=== PATIENT | female | born 1955 | race Caucasian/White ===

== ENCOUNTER 2022-05-23 12:05 | Day surgery (SDC) | payer OTHER ==
[~2022-05-23] VITALS: Ht 162.6 cm; Wt 72.7 kg
[2022-05-23] MEDS ORDERED: OMEP20ER (12:56)
[2022-05-23] MEDS ORDERED: GABA300 (12:56)
[2022-05-23] MEDS ORDERED: Masophen325 MG (12:57)
[2022-05-23] MEDS ORDERED: MAGCIT300 (12:57)
== END 2022-05-23 14:33 | disposition home or self-care (01) ==
LOC: ORSCSDS 12:05
PROVIDERS: Surgery
PROC: 0DBN8ZX Excision of Sigmoid Colon, Via Natural or Artificial Opening Endoscopic, Diagnostic (ICD-10-PCS; principal; 2022-05-23 13:30)
DX: Z12.11 Encounter for screening for malignant neoplasm of colon (principal); K63.5 Polyp of colon; K57.30 Diverticulosis of large intestine without perforation or abscess without bleeding; Z87.891 Personal history of nicotine dependence
CPT/HCPCS: 88305; J2704; J7120

== ENCOUNTER 2022-06-01 10:59 | Inpatient (IN) | payer OTHER ==
[~2022-06-01] VITALS: Ht 165.1 cm; Wt 73.6 kg
[~2022-06-01 10:59] MED LIST: GABA300 PO; MAGCIT300; Masophen325 MG PO; OMEP20ER PO
--- NOTE | 2022-06-01 13:48 | NUR ---
THE PATIENT WAS BROUGHT TO DAY SURGERY FROM THE ER FOR HER PROCEDURE.
--- NOTE | 2022-06-01 17:07 | NUR ---
PATIENT CAME BACK FROM PACU TODAY 06/01/22 AT 1625. POD 0 LEFT ANKLE ORIF PATIENT IS A&OX4. HER BP IS HIGH BUT OTHERWISE HAS WNL VS. PATIENT IS ON RA AND HAS >90% OXYGEN SATS. PATIENT REPORTS 5/10 PAIN AND WAS GIVEN WHAT IS ORDERED IN THE EMAR. LEFT ANKLE HAS EXTERNAL RODS AND A CAST THAT IS C/D/I. PATIENT IS TO BE NON WEIGHT BEARING ON THE LEFT ANKLE. SHE DENIES NUMBNESS AND TINGLING. CAN MOVE FINGERS AND TOES WHEN ASKED. PATIENT IS TOLERATING SMALL AMOUNTS OF PO INTAKE. SHE IS LAYING IN BED WITH CALL LIGHT IN REACH.
[2022-06-01 17:22] LABS: BASOPHILS ABSOLUTE AUTO 0.05 K/mm3 (0.00-0.23); BASOPHILS PERCENT AUTO 0 % (0-2); EOSINOPHILS ABSOLUTE AUTO 0.03 K/mm3 (0.00-0.68); EOSINOPHILS PERCENT AUTO 0 % (0-6); Hematocrit 35.6 % (33.0-51.0); Hemoglobin 11.1 g/dL (11.5-16.0); IMMATURE GRAN ABSOLUTE AUTO 0.05 K/mm3 (0.00-0.10); IMMATURE GRAN PERCENT AUTO 0 % (0-1); LYMPHOCYTES ABSOLUTE AUTO 0.78 K/mm3 (0.84-5.20); LYMPHOCYTES PERCENT AUTO 6 % (21-46); MONOCYTES ABSOLUTE AUTO 0.17 K/mm3 (0.16-1.47); MONOCYTES PERCENT AUTO 1 % (4-13); Mean Corpuscular HGB 26.2 pg (26.0-34.0); Mean Corpuscular HGB Conc 31.2 g/dL (31.5-36.5); Mean Corpuscular Volume 84 fL (80-100); Mean Platelet Volume 9.4 fL (9.1-12.4); NEUTROPHILS ABSOLUTE AUTO 11.17 K/mm3 (1.96-9.15); NEUTROPHILS PERCENT AUTO 91 % (41-73); Platelet Count 244 K/mm3 (150-400); RDW Coefficient Variation 14.9 % (11.7-14.2); RDW Standard Deviation 45.7 fL (35.1-46.3); Red Blood Cell Count 4.23 M/mm3 (3.80-5.20); White Blood Cell Count 12.25 K/mm3 (4.00-11.30)
[2022-06-01 17:32] LABS: Influenza A, PCR NEGATIVE (NEGATIVE); Influenza B, PCR NEGATIVE (NEGATIVE); Resp Syncytial Virus, PCR NEGATIVE (NEGATIVE); SARS-Cov-2 (COVID-19) PCR, MMC NEGATIVE (NEGATIVE)
[2022-06-01 17:39] LABS: Bun/Creatinine Ratio 22.5 (12.0-20.0); Calcium, Blood 8.8 mg/dL (8.5-10.1); Creatinine, Blood 0.71 mg/dL (0.40-1.00); Potassium, Blood 4.1 mmol/L (3.5-5.5)
--- NOTE | 2022-06-02 01:34 | NUR ---
assumed care following receiving report from previous RN Deon. pt sleeping in bed, bed rails up x 2, call light within reach, bed in lowest position.
--- NOTE | 2022-06-02 04:54 | NUR ---
pt awakened for morning labs/vs. vss, no acute changes, a/o x 4, pleasant/cooperative, up to commode with turn/pivot. provided analgesia per mar and back to bed, bed in lowest position, call light within reach.
[2022-06-02 05:03] LABS: BASOPHILS ABSOLUTE AUTO 0.02 K/mm3 (0.00-0.23); BASOPHILS PERCENT AUTO 0 % (0-2); EOSINOPHILS PERCENT AUTO 0 % (0-6); Hematocrit 31.6 % (33.0-51.0); Hemoglobin 10.1 g/dL (11.5-16.0); IMMATURE GRAN ABSOLUTE AUTO 0.05 K/mm3 (0.00-0.10); IMMATURE GRAN PERCENT AUTO 1 % (0-1); LYMPHOCYTES ABSOLUTE AUTO 1.31 K/mm3 (0.84-5.20); LYMPHOCYTES PERCENT AUTO 12 % (21-46); MONOCYTES ABSOLUTE AUTO 0.75 K/mm3 (0.16-1.47); MONOCYTES PERCENT AUTO 7 % (4-13); Mean Corpuscular HGB 26.5 pg (26.0-34.0); Mean Corpuscular Volume 83 fL (80-100); Mean Platelet Volume 9.6 fL (9.1-12.4); NEUTROPHILS PERCENT AUTO 80 % (41-73); Platelet Count 258 K/mm3 (150-400); RDW Coefficient Variation 14.7 % (11.7-14.2); RDW Standard Deviation 44.9 fL (35.1-46.3); Red Blood Cell Count 3.81 M/mm3 (3.80-5.20); White Blood Cell Count 10.53 K/mm3 (4.00-11.30)
[2022-06-02 05:48] LABS: Bun/Creatinine Ratio 23.1 (12.0-20.0); Calcium, Blood 8.5 mg/dL (8.5-10.1); Creatinine, Blood 0.74 mg/dL (0.40-1.00); Potassium, Blood 4.7 mmol/L (3.5-5.5)
--- NOTE | 2022-06-02 10:31 | NUR ---
Spiritual Care, Nurse referral. Pt. is awake in a recliner and welcomes my visit. Pt. is pleasant but is unsettled with the prospect that she might be D/C today. Listen empathetically with a calming presence. Pt. displays evidence of engagement and a sense of responsibility. Establish rapport. Prayed with Pt. Pt. verbalized gratitude for the spiritual care visit.
--- NOTE | 2022-06-02 14:46 | NUR ---
SHIFT SUMMARY: POD 1 LEFT ANKLE ORIF PATIENT IS A&OX4. VS ARE WNL AND IS ON RA. PAIN IS MANAGED WITH PO PAIN MEDICATIONS. LEFT ANKLE HAS EXTERNAL RODS WELL A CAST WITH YAHAIRA WRAP THAT IS C/D/I. SHE IS NON WEIGHT BEARING ON THE LEFT FOOT. PATIENT IS A [facility] [place] [facility] [place] FWW AND GAIT BELT. PATIENT IS NOW NOT NAUSEOUS OR VOMITING ANYMORE. SHE IS TOLERATING PO INTAKE AND IS VOIDING/PASSING GAS. PATIENT IS CURRENTLY LAYING UP IN BED WITH CALL LIGHT IN REACH. THE PLAN IS TO HAVE THE PATIENT HERE UNTIL SUNDAY WHEN HER SISTER COMES UP TO TAKE CARE OF HER AT HOME. PATIENT WILL BE NON WEIGHT BEARING ON THE LEFT FOOT FOR THREE MONTHS. SHE WILL NEED TO FOLLOW UP WITH DR. BRANDT ON SUNDAY PER DR. FARRELL.
--- NOTE | 2022-06-02 19:49 | NUR ---
RECEIVED REPORT FROM PREVIOUS SHIFT YAYO SOW. PT SLEEPING IN BED, AWAKENS EASILY, A/O X 4, PLEASANT/COOPERATIVE. BED IN LOWEST POSITION, BED RAILS UP X 2, PT DENIES NEED FOR ANALGESIA AT THIS TIME. CALL LIGHT WITHIN REACH.
[2022-06-03 04:37] LABS: BASOPHILS ABSOLUTE AUTO 0.03 K/mm3 (0.00-0.23); BASOPHILS PERCENT AUTO 0 % (0-2); EOSINOPHILS ABSOLUTE AUTO 0.18 K/mm3 (0.00-0.68); EOSINOPHILS PERCENT AUTO 2 % (0-6); Hemoglobin 9.4 g/dL (11.5-16.0); IMMATURE GRAN ABSOLUTE AUTO 0.02 K/mm3 (0.00-0.10); IMMATURE GRAN PERCENT AUTO 0 % (0-1); LYMPHOCYTES ABSOLUTE AUTO 2.78 K/mm3 (0.84-5.20); LYMPHOCYTES PERCENT AUTO 32 % (21-46); MONOCYTES ABSOLUTE AUTO 0.74 K/mm3 (0.16-1.47); MONOCYTES PERCENT AUTO 8 % (4-13); Mean Corpuscular HGB 26.3 pg (26.0-34.0); Mean Corpuscular HGB Conc 31.3 g/dL (31.5-36.5); Mean Corpuscular Volume 84 fL (80-100); Mean Platelet Volume 9.7 fL (9.1-12.4); NEUTROPHILS ABSOLUTE AUTO 5.07 K/mm3 (1.96-9.15); NEUTROPHILS PERCENT AUTO 58 % (41-73); Platelet Count 227 K/mm3 (150-400); RDW Coefficient Variation 14.6 % (11.7-14.2); RDW Standard Deviation 45.1 fL (35.1-46.3); Red Blood Cell Count 3.57 M/mm3 (3.80-5.20); White Blood Cell Count 8.82 K/mm3 (4.00-11.30)
[2022-06-03 05:40] LABS: Bun/Creatinine Ratio 21.7 (12.0-20.0); Creatinine, Blood 0.83 mg/dL (0.40-1.00); Potassium, Blood 4.3 mmol/L (3.5-5.5)
--- NOTE | 2022-06-03 05:40 | NUR ---
SHIFT SUMMARY ASSUMED CARE AT 1145 PM. ORIENTED WHEN AWAKE, SLEPT MOST OF NIGHT. POD 2 L ANKLE REPAIR WITH EXTERNAL FIXATION. LEFT TOES WARM, ABLE TO WIGGLE, DENIES NUMBNESS/TINGLING. PAIN CONTROLLED WITH PO PAIN MEDS, SEE EMAR. GAUZE AND YAHAIRA WRAP IN PLACE AROUND EXTERNAL HARDWARE. LEFT 4TH FINGER FX IN SPLINT. SBA WITH FWW TO PIVOT TO COMMODE, THEN BACK TO BED. TOLERATING REGULAR DIET AND LIQUIDS. SALINE LOCKED. PLAN TO DC HOME ON Sunday06/04/22 WITH SISTER. WILL REPORT TO DAY SHIFT RN.
--- NOTE | 2022-06-03 18:45 | NUR ---
SHIFT SUMMARY POD2 L ANKLE OPEN REDUCTION EXTERNAL FIXATION, A/OX 4, VSS, TOLERATING PO, PT WORKED WITH PHYSICAL THERAPY THIS SHIFT, PLAN FOR DC TOMORROW WITH HER SISTER. NO ACUTE EVENTS THIS SHIFT. CALL LIGHT IN REACH, WILL CTM AND REPORT TO ONCOMING NOC RN.
--- NOTE | 2022-06-04 03:14 | NUR ---
SUMMARY PT DISCOMFORT TX PER EMAR WITH RELIEF. PT UP WITH GB AND FWW TO BSC MAINTAINING NO WEIGHTBEARING ON LEFT FOOT. PT SLEPT WELL THROUGHOUT SHIFT. CALL LIGHT IN REACH.
[2022-06-04] MEDS ORDERED: Norco 10-325 T1 EACH PO (16:52)
[2022-06-04] MEDS ORDERED: Sen-O-Tab8.6 MG PO (16:52)
--- NOTE | 2022-06-04 17:49 | NUR ---
DISCHARGE PT DISCHARGED HOME FROM UNIT AT APROX 1750. PT GIVEN WRITTEN AND VERBAL DC INSTRUCTIONS AND VERBALIZED UNDERSTANDING. IV REMOVED. WC TO CAR.
== END 2022-06-04 18:20 | disposition home or self-care (01) | DRG 494 ==
LOC: ER 10:59 → SURS 15:12
PROVIDERS: Emergency Medicine; Family Medicine; Orthopaedic Surgery; ADMIT Internal Medicine
PROC: 0PSVXZZ Reposition Left Finger Phalanx, External Approach (ICD-10-PCS; 2022-06-01)
PROC: 0QHH34Z Insertion of Internal Fixation Device into Left Tibia, Percutaneous Approach (ICD-10-PCS; principal; 2022-06-01 13:30)
DX: S82.252A Displaced comminuted fracture of shaft of left tibia, initial encounter for closed fracture (principal); S62.625A Displaced fracture of middle phalanx of left ring finger, initial encounter for closed fracture; W11.XXXA Fall on and from ladder, initial encounter; S82.832A Other fracture of upper and lower end of left fibula, initial encounter for closed fracture; K21.9 Gastro-esophageal reflux disease without esophagitis; Z88.2 Allergy status to sulfonamides; Z90.710 Acquired absence of both cervix and uterus; Z98.890 Other specified postprocedural states; Z87.891 Personal history of nicotine dependence; Z79.899 Other long term (current) drug therapy; Z20.822 Contact with and (suspected) exposure to COVID-19
CPT/HCPCS: 0241U; 26725; 36415; 73120; 73590; 73610; 73700; 76377; 80048; 82306; 85025; 94760; 96374; 96375; 96376; 97110; 97116; 97161; 97166; 97530; 97535; 99285-25; A9270; C1713; J0330; J0690; J1100; J1170; J1650; J1885; J2270; J2405; J2704; J3010; J7030

== ENCOUNTER 2022-06-09 09:45 | Day surgery (SDC) | payer OTHER ==
[~2022-06-09] VITALS: Ht 165.1 cm; Wt 73.5 kg
[~2022-06-09 09:45] MED LIST changes: +Norco 10-325 T1 EACH PO; +Sen-O-Tab8.6 MG PO
[2022-06-09 10:46] LABS: Hematocrit 34.2 % (33.0-51.0); Hemoglobin 10.5 g/dL (11.5-16.0)
--- NOTE | 2022-06-09 11:44 | NUR ---
06/09/22 1144 NAT OCHOA PT SCHEDULED FOR DUAL PROCEDURE WITH DR. BRANDT AND DR. ADAMS. PT READY IN PRE OP. AWAITING DR. ADAMS TO SEE PATIENT. CALL LIGHT IN REACH, SISTER IN ROOM.
--- NOTE | 2022-06-09 12:29 | NUR ---
06/09/[address] IN ROOM TO DO HER CASE FIRST, DR. BRANDT TO FOLLOW.
--- NOTE | 2022-06-09 15:53 | NUR ---
06/09/22 8723 Kaila George PT IS IN THE RECLINER WITH OP LEG ELEVATED. PT HAS ICE BEHIND THE OP KNEE. PT'S SISTER IS AT CHAIRSIDE. PT TOLERATING PO FLUIDS AND CRACKERS WELL AND DENIES NAUSEA. VSS. PT COMPLAINS OF PAIN 8/10 IN THE LEFT LEG. RN IS TREATING WITH IV PAIN MEDICATION AND PO PAIN MEICATIONS PER DR'S ORDERS.
--- NOTE | 2022-06-09 16:11 | NUR ---
06/09/22 1611 Kaila George PT DISCHARGED HOME FROM STEP DOWN AT 1610. PT TAKEN OUT TO SISTERS CAR VIA WHEELCHAIR. PT SENT HOME WITH ALL PERSONAL BELONGINGS, RX, AND DISCHARGE INSTRUCTIONS.
== END 2022-06-09 16:10 | disposition home or self-care (01) ==
LOC: ORSCSDS 09:45
PROVIDERS: Podiatrist Foot & Ankle Surgery
PROC: 0QPH05Z Removal of External Fixation Device from Left Tibia, Open Approach (ICD-10-PCS; principal; 2022-06-09 11:30)
PROC: 0QSH04Z Reposition Left Tibia with Internal Fixation Device, Open Approach (ICD-10-PCS; principal; 2022-06-09 11:30)
PROC: 0QHK04Z Insertion of Internal Fixation Device into Left Fibula, Open Approach (ICD-10-PCS; principal; 2022-06-09 11:30)
PROC: 0PSV34Z Reposition Left Finger Phalanx with Internal Fixation Device, Percutaneous Approach (ICD-10-PCS; principal; 2022-06-09 11:30)
DX: S82.872A Displaced pilon fracture of left tibia, initial encounter for closed fracture (principal); S82.62XA Displaced fracture of lateral malleolus of left fibula, initial encounter for closed fracture; S62.629A Displaced fracture of middle phalanx of unspecified finger, initial encounter for closed fracture; W11.XXXA Fall on and from ladder, initial encounter; K21.9 Gastro-esophageal reflux disease without esophagitis; Z79.899 Other long term (current) drug therapy; Z87.891 Personal history of nicotine dependence
CPT/HCPCS: 85014; 85018; A9270; C1713; J0171; J0690; J1100; J2250; J2405; J2704; J2795; J3010; J7120

== ENCOUNTER 2024-10-02 13:43 | Emergency (ER) | payer OTHER ==
[~2024-10-02] VITALS: Ht 165.1 cm; Wt 78.0 kg
[2024-10-02 14:10] VITALS: BP 161/87
[2024-10-02] MEDS ORDERED: HYDROcodone 5-APAP 325 TAB PO ONE (15:25)
[2024-10-02] MEDS ORDERED: Norco 5-325 Ta1 EACH PO (15:37)
[2024-10-07] MEDS ORDERED: Cyclobenzaprine5 MG (10:53)
[2024-10-07] MEDS ORDERED: ACET325 (10:54)
[2024-10-07] MEDS ORDERED: IBUP200 PO (10:54)
[2024-10-07] MEDS ORDERED: LIDO700A20 TOP (10:54)
== END 2024-10-02 15:53 | disposition home or self-care (01) ==
LOC: ER 13:43
DX: S82.142A Displaced bicondylar fracture of left tibia, initial encounter for closed fracture (principal); W18.30XA Fall on same level, unspecified, initial encounter; Z79.899 Other long term (current) drug therapy; Z88.2 Allergy status to sulfonamides
CPT/HCPCS: 29505; 73562-LT; 73610; 99283-25; A9270

== ENCOUNTER 2024-10-09 11:25 | Inpatient (IN) | payer OTHER ==
[2024-10-09] VITALS (13 sets, daily range): BP systolic 105–152; BP diastolic 67–91
[~2024-10-09] VITALS: Ht 152.4 cm; Wt 83.1 kg
[~2024-10-09 11:25] MED LIST changes: +ACET325; +CeFAZolin Sodium 2,000 MG in NS 100 ML IV SCH; +Cyclobenzaprine5 MG; +IBUP200 PO; +LIDO700A20 TOP; +Lactated Ringer's 1,000 ML IV SCH; +Norco 5-325 Ta1 EACH PO
[2024-10-09] MEDS ORDERED: CeFAZolin Sodium 2,000 MG VIAL ONE (11:50)
[2024-10-09] MEDS ORDERED: OXYCODONE-ACET1 EAC3 PO (12:00)
[2024-10-09] MEDS ORDERED: propofoL 150 ML IV ONE (12:22)
[2024-10-09] MEDS ORDERED: Ketorolac Tromethamine 30mg Vial ONE (12:23)
[2024-10-09] MEDS ORDERED: FentaNYL Citrate 50 MCG/ML 2 ML Injection ONE (12:23)
[2024-10-09] MEDS ORDERED: Dexamethasone Sod Phos 10 MG/ML 1ML VIAL ONE ×2 (12:23→13:50)
[2024-10-09] MEDS ORDERED: Ondansetron HCl 2 MG / ML 2ML Vial ONE (12:23)
[2024-10-09] MEDS ORDERED: HYDROmorphone HCl/Pf 1MG SYR ONE (12:43)
[2024-10-09] MEDS ORDERED: Acetaminophen 500 MG Tab ONE (12:54)
[2024-10-09] MEDS ORDERED: Acetaminophen 500 MG Tab PO ONE (12:55)
[2024-10-09] MEDS ORDERED: Bisacodyl 10 MG Supp PR PRN (13:05)
[2024-10-09] MEDS ORDERED: FLU VACC TS2024-25(6MOS UP)/PF 45 MCG/0.5 ML SYRINGE IM SCH (13:05)
[2024-10-09] MEDS ORDERED: Magnesium Hydroxide Conc 10 ML UDC PO PRN (13:10)
[2024-10-09] MEDS ORDERED: Tranexamic Acid 0 ML IV ONE (13:18)
[2024-10-09] MEDS ORDERED: EpiNEPhrine 1 MG/1 ML 1ML Vial ONE ×2 (13:30→13:50)
[2024-10-09] MEDS ORDERED: Bupivacaine 0.5% HCl 5 MG/ML 30MLVIAL ONE (13:30)
[2024-10-09] MEDS ORDERED: Ropivacaine 0.5% HCL/PF 5 MG/ML 30ML Vial ONE (13:51)
[2024-10-09] MEDS ORDERED: propofoL 40 ML IV ONE ×2 (14:04→14:36)
[2024-10-09] MEDS ORDERED: Metoclopramide HCl 5MG / ML 2ML Vial ONE (14:13)
[2024-10-09] MEDS ORDERED: OxyCODONE 5 mg/Acetamin 325 mg TABLET PO PRN (17:45)
[2024-10-09] MEDS ORDERED: HYDROmorphone HCl/Pf 1MG SYR IV PRN (17:50)
[2024-10-09] MEDS ORDERED: Docusate Sodium 100 MG Cap PO SCH (21:00)
[2024-10-10 00:03] VITALS: BP 113/66
[2024-10-10 03:34] VITALS: BP 110/66
[2024-10-10 05:04] LABS: BASOPHILS ABSOLUTE AUTO 0.01 K/mm3 (0.00-0.23); BASOPHILS PERCENT AUTO 0 % (0-2); EOSINOPHILS PERCENT AUTO 0 % (0-6); Hematocrit 28.8 % (33.0-51.0); Hemoglobin 9.3 g/dL (11.5-16.0); IMMATURE GRAN ABSOLUTE AUTO 0.06 K/mm3 (0.00-0.10); IMMATURE GRAN PERCENT AUTO 1 % (0-1); LYMPHOCYTES ABSOLUTE AUTO 0.76 K/mm3 (0.84-5.20); LYMPHOCYTES PERCENT AUTO 8 % (21-46); MONOCYTES ABSOLUTE AUTO 0.38 K/mm3 (0.16-1.47); MONOCYTES PERCENT AUTO 4 % (4-13); Mean Corpuscular HGB 28.8 pg (26.0-34.0); Mean Corpuscular HGB Conc 32.3 g/dL (31.5-36.5); Mean Corpuscular Volume 89 fL (80-100); Mean Platelet Volume 8.7 fL (9.1-12.4); NEUTROPHILS ABSOLUTE AUTO 8.34 K/mm3 (1.96-9.15); NEUTROPHILS PERCENT AUTO 87 % (41-73); Platelet Count 315 K/mm3 (150-400); RDW Coefficient Variation 15.1 % (11.7-14.2); Red Blood Cell Count 3.23 M/mm3 (3.80-5.20); White Blood Cell Count 9.55 K/mm3 (4.00-11.30)
[2024-10-10 05:45] LABS: Bun/Creatinine Ratio 25.3 (12.0-20.0); Calcium, Blood 9.1 mg/dL (8.5-10.1); Creatinine, Blood 0.71 mg/dL (0.40-1.00); Potassium, Blood 4.6 mmol/L (3.5-5.5)
[2024-10-10 08:08] VITALS: BP 124/75
[2024-10-10 14:38] VITALS: BP 124/74
== END 2024-10-10 15:38 | disposition home health service (06) | DRG 493 ==
LOC: SURS 11:25 → PRE IP 12:30 → SURS 16:02
PROVIDERS: ADMIT Orthopaedic Surgery
PROC: 3E0V0GB Introduction of Recombinant Bone Morphogenetic Protein into Bones, Open Approach (ICD-10-PCS; 2024-10-09)
PROC: 0QSH04Z Reposition Left Tibia with Internal Fixation Device, Open Approach (ICD-10-PCS; principal; 2024-10-09 12:30)
DX: S82.142A Displaced bicondylar fracture of left tibia, initial encounter for closed fracture (principal); D62 Acute posthemorrhagic anemia; Z88.2 Allergy status to sulfonamides; Z79.899 Other long term (current) drug therapy; Z90.710 Acquired absence of both cervix and uterus; Z87.891 Personal history of nicotine dependence; W01.0XXA Fall on same level from slipping, tripping and stumbling without subsequent striking against object, initial encounter
CPT/HCPCS: 36415; 73560-LT; 80048; 85025; 97110; 97116; 97162; A9270; C1713; J0171; J0690; J1100; J1171; J1885; J2405; J2704; J2765; J2795; J3010; J7120